=== PATIENT | male | born 1955 | race Caucasian/White ===

== ENCOUNTER 2025-01-12 09:19 | Outpatient (CLI) | payer MEDICARE, SELFPAY ==
[2025-01-12 09:28] VITALS: BP 91/60; PULSE 77; RESP 16; TEMP 35.7; O2SAT 100; BMI 24.7
[2025-01-12 10:08] VITALS: BP 90/51; PULSE 74; RESP 16; TEMP 35.9; O2SAT 99
[2025-01-12 11:08] VITALS: BP 86/54; PULSE 75; RESP 16; TEMP 35.8; O2SAT 99
[2025-01-12 11:49] VITALS: BP 93/60; PULSE 77; RESP 16; TEMP 35.7; O2SAT 100
== END 2025-01-12 23:59 | disposition home or self-care (01) ==
PROVIDERS: PCP Internal Medicine; Referring Provider Internal Medicine Hematology & Oncology; Visit Provider Internal Medicine Hematology & Oncology
DX: D64.9 Anemia, unspecified (principal)
CPT/HCPCS: 36430; 86850; 86900; 86901; 86920; P9040; A4216

== ENCOUNTER → 2025-01-22 | Outpatient (CLI) | payer MEDICARE, SELFPAY | END | disposition home or self-care (01) | LOC: LABSPEC 15:17 | PROVIDERS: PCP Internal Medicine; Referring Provider Specialist; Visit Provider Specialist | DX: C91.10 Chronic lymphocytic leukemia of B-cell type not having achieved remission (principal) | CPT/HCPCS: 86850; 86900; 86901 ==

== ENCOUNTER 2025-01-23 12:19 | Outpatient (CLI) | payer MEDICARE, SELFPAY ==
[2025-01-23 12:37] VITALS: BP 104/56; PULSE 95; RESP 16; TEMP 36.7; O2SAT 99
[2025-01-23] MEDS: 0.9% NaCl Peripheral Flush Adult IV (12:51)
[2025-01-23 13:25] VITALS: BP 90/54; PULSE 85; RESP 16; TEMP 36.6; O2SAT 93
[2025-01-23 14:25] VITALS: BP 94/48; PULSE 85; RESP 16; TEMP 36.3; O2SAT 98
== END 2025-01-23 23:59 | disposition home or self-care (01) ==
LOC: MEDOUTP 12:19
PROVIDERS: PCP Internal Medicine; Referring Provider Specialist; Visit Provider Specialist
DX: C91.10 Chronic lymphocytic leukemia of B-cell type not having achieved remission (principal)
CPT/HCPCS: 36430; 86850; 86900; 86901; P9016; A4216

== ENCOUNTER 2025-01-24 12:19 | Outpatient (CLI) | payer MEDICARE, SELFPAY ==
[2025-01-24 12:59] VITALS: BP 102/65; PULSE 87; RESP 16; TEMP 36.5; O2SAT 99
[2025-01-24 13:23] VITALS: BP 88/58; PULSE 81; RESP 16; TEMP 36.6; O2SAT 98
[2025-01-24 14:23] VITALS: BP 93/62; PULSE 79; RESP 16; TEMP 36.4; O2SAT 99
== END 2025-01-24 23:59 | disposition home or self-care (01) ==
LOC: MEDOUTP 12:19
PROVIDERS: PCP Internal Medicine; Referring Provider Specialist; Visit Provider Specialist
DX: C91.10 Chronic lymphocytic leukemia of B-cell type not having achieved remission (principal)
CPT/HCPCS: 36430; 86850; 86900; 86901; P9016; A4216

== ENCOUNTER 2025-02-02 07:20 | Outpatient (CLI) | payer MEDICARE, SELFPAY ==
[2025-02-02 07:31] VITALS: BP 88/55; PULSE 79; RESP 16; TEMP 36.4; O2SAT 98; BMI 24.8
[2025-02-02] MEDS: 0.9% NaCl Peripheral Flush Adult IV (07:50)
[2025-02-02 08:20] VITALS: BP 78/47; PULSE 72; RESP 16; TEMP 36.7; O2SAT 98
[2025-02-02 10:03] VITALS: BP 90/55; PULSE 77; RESP 16; TEMP 36.4; O2SAT 98
[2025-02-02 10:18] VITALS: BP 92/55; PULSE 70; RESP 16; TEMP 36.4; O2SAT 100
[2025-02-02 11:18] VITALS: BP 98/57; PULSE 72; RESP 16; TEMP 36.4
== END 2025-02-02 23:59 | disposition home or self-care (01) ==
LOC: MEDOUTP 07:21
PROVIDERS: PCP Internal Medicine; Referring Provider Specialist; Visit Provider Specialist
DX: C91.10 Chronic lymphocytic leukemia of B-cell type not having achieved remission (principal)
CPT/HCPCS: 36430; 86644; 86850; 86900; 86901; P9016; A4216